=== PATIENT | female | born 1980 | race Caucasian/White ===

== ENCOUNTER → 2021-10-13 | Outpatient (CLI) | payer OTHER | END | disposition home or self-care (01) | LOC: SONOGRAMA 13:10 | PROVIDERS: ATTEND Internal Medicine | DX: E04.2 Nontoxic multinodular goiter (principal) ==

== ENCOUNTER 2022-05-13 13:01 | Outpatient (CLI) | payer OTHER | END 2022-05-13 13:32 | disposition home or self-care (01) | LOC: MAMO-SONO 13:01 | PROVIDERS: ATTEND Obstetrics & Gynecology | DX: Z12.31 Encounter for screening mammogram for malignant neoplasm of breast (principal); N60.11 Diffuse cystic mastopathy of right breast; N60.12 Diffuse cystic mastopathy of left breast ==

== ENCOUNTER 2022-06-03 09:35 | Outpatient (CLI) | payer OTHER | END 2022-06-03 09:50 | disposition home or self-care (01) | LOC: SONOGRAMA 09:35 | PROVIDERS: ATTEND Obstetrics & Gynecology | DX: R10.9 Unspecified abdominal pain (principal) ==

== ENCOUNTER 2022-11-25 13:13 | Outpatient (CLI) | payer OTHER | END 2022-11-25 13:22 | disposition home or self-care (01) | LOC: SONOGRAMA 13:13 | PROVIDERS: ATTEND Obstetrics & Gynecology | DX: E04.1 Nontoxic single thyroid nodule (principal) ==